=== PATIENT | female | born 1985 | race Two or more races ===

== ENCOUNTER → 2024-08-03 | Outpatient (CLI) | payer MEDICAID, SELFPAY ==
--- NOTE | 2024-08-03 | XR_ITS ---
Examination: Bilateral hands, 6 views. Technique: AP, Oblique, Lateral each hand total 6 views Date and time of exam: August 03, 2024 1323 hours INDICATIONS: Bilateral hand pain years getting worse Findings: Moderate juxta-articular bone demineralization No fracture or dislocation involving either wrist No erosive or other significant arthritic change involving either wrist No opaque foreign bodies IMPRESSION: No erosive or other significant arthritic change involving either wrist
--- NOTE | 2024-08-03 | XR_ITS ---
Examination: Bilateral wrists 6 views TECHNIQUE: AP oblique lateral each wrist total 6 views Exam date and time: May 04, 2024 1330 hours INDICATIONS: Bilateral wrist pain years. FINDINGS: Moderate osteopenia. No fracture or dislocation involving either wrist No erosive or other significant arthritic change involving IMPRESSION: No erosive or other significant arthritic change involving either wrist
--- NOTE | 2024-08-03 | XR_ITS ---
Exam: elbow bilateral, 6 views Technique: Elbow AP, oblique lateral each elbow total 6 views Exam date and time: August 03, 2024 1323 hours INDICATIONS: Bilateral elbow pain years FINDINGS: No fracture or dislocation involving either elbow No elbow effusions No arthritic change IMPRESSION: No fracture or arthritic change involving either elbow.
== END | disposition home or self-care (01) ==
PROVIDERS: PCP Family Medicine
DX: M25.532 Pain in left wrist (principal); M25.531 Pain in right wrist; M79.642 Pain in left hand; M79.641 Pain in right hand; M25.521 Pain in right elbow; M25.522 Pain in left elbow
CPT/HCPCS: 73080; 73110; 73130

== ENCOUNTER → 2024-11-14 | Outpatient (CLI) | payer MEDICAID, SELFPAY ==
--- NOTE | 2024-11-14 08:45 | XR_ITS ---
Examination: Screening digital mammography, bilateral Computer aided detection 3-D breast Tomosynthesis, bilateral Date and time of exam: November 14, 2024 0902 hours Compared to mammograms dating to October 02, 2021 Indication: Screening Technique: Nonmagnified MLO, CC views of the breasts to been obtained, reconstructed from 3-D Tomosynthesis images. R2 computer aided detection program utilized for evaluation of suspicious masses and/or abnormal calcifications. 3-D Tomosynthesis images obtained. Findings: The breasts are extremely dense, which limits the sensitivity of mammography Benign calcifications No interval suspicious masses Impression: BI-RADS category II: Benign Findings. Recommend 1 year follow-up mammogram.
== END | disposition home or self-care (01) ==
LOC: CDIM 08:54
PROVIDERS: PCP Internal Medicine; Referring Provider Internal Medicine; Visit Provider Internal Medicine
DX: Z12.31 Encounter for screening mammogram for malignant neoplasm of breast (principal); R92.323 Mammographic fibroglandular density, bilateral breasts; R92.1 Mammographic calcification found on diagnostic imaging of breast
CPT/HCPCS: 77063; 77067